=== PATIENT | male | born 1950 | race Two or more races ===

== ENCOUNTER 2023-09-11 12:13 | Emergency (ER) | payer OTHER ==
[~2023-09-11] VITALS: Ht 172.7 cm; Wt 83.0 kg
[2023-09-11 14:36] LABS: Basophils # (auto) 0 10 ^3/uL (0-0.2); Basophils % (auto) 0.2 % (0.0-2.0); Eosinophils # (auto) 0 10 ^3/uL (0-0.8); Eosinophils % (auto) 0.1 % (0.0-7.0); Hemoglobin 16.4 g/dL (13.5-17.5); Lymphocytes # (auto) 1.1 10 ^3/uL (0.4-5.4); Mean Corpuscular Hemoglobin 32.1 pg (28.0-32.0); Mean Corpuscular Volume 91.6 fL (80.0-100.0); Monocytes # (auto) 0.4 10 ^3/uL (0-1.3); Monocytes % (auto) 2.6 % (0.0-12.0); Neutrophils # (auto) 12.5 10 ^3/uL (1.6-8.6); Neutrophils % (auto) 89.1 % (37.0-80.0); Nucleated Red Blood Cells % 0.1 %; Red Blood Cells 5.13 10^6/uL (4.5-5.90); Red Cell Distribution Width 13.1 % (11.8-14.3)
[2023-09-11 14:57] LABS: Alanine Aminotransferase 36 U/L (7-40); Alkaline Phosphatase 73 U/L (46-116); Anion Gap 11 (5-15); Aspartate Aminotransferase 26 U/L (13-40); Blood Urea Nitrogen 10 mg/dL (9-23); Calcium 9.7 mg/dL (8.7-10.4); Carbon Dioxide 23 mmol/L (20-30); Chloride 102 mmol/L (98-107); Glucose 207 mg/dL (74-106); Sodium 136 mmol/L (136-145)
[2023-09-11 14:58] LABS: Albumin 4.7 g/dL (3.2-4.8); Bilirubin, Total 0.7 mg/dL (0.2-1.0)
[2023-09-11] MEDS: SODIUM CHLORIDE 0.9% 1,000 ML IV ONE ×2 (14:59→16:56)
[2023-09-11 15:09] VITALS: PULSE 60; RESP 18; O2SAT 99
[2023-09-11 15:22] LABS: Lactic Acid w/Reflex 4.1 mmol/L (0.4-2.0)
[2023-09-11] MEDS: ACETAMINOPHEN 325 MG TAB PO ONE (15:27)
[2023-09-11 15:28] LABS: Lipase 27 U/L (12-53)
[2023-09-11] MEDS: MORPHINE SULFATE INJ 2 MG/ml SYRG IV ONE (15:28)
[2023-09-11] MEDS: cefTRIAXone 1GM/50ML D5W 50 ML IV ONE (16:40)
[2023-09-11] MEDS: metroNIDAZOLE 500MG/100ML 100 ML IV ONE (16:55)
[2023-09-11] MEDS: KETOROLAC TROMETH 30 MG/ML 1ML VIAL IV ONE (18:32)
[2023-09-11 19:11] LABS: Lactic Acid w/Reflex 2.7 mmol/L (0.4-2.0)
[2023-09-11 20:10] VITALS: BP 144/67; PULSE 77; RESP 20; TEMP 97.8; O2SAT 94
== END 2023-09-11 19:51 | disposition short-term general hospital (02) ==
LOC: ER 12:13
DX: K80.20 Calculus of gallbladder without cholecystitis without obstruction (principal); D72.829 Elevated white blood cell count, unspecified; R10.13 Epigastric pain; E87.20 Acidosis, unspecified; E11.9 Type 2 diabetes mellitus without complications; I10 Essential (primary) hypertension; Z98.890 Other specified postprocedural states
CPT/HCPCS: 36415; 74176; 76705; 80053; 83605; 83690; 84484; 85025; 93005; 96361; 96365; 96366; 96368; 96375; 99285; J0696; J1885; J2270; J3490; J7030; 96360